=== PATIENT | female | born 1960 ===

== ENCOUNTER → 2025-05-28 | Outpatient (CLI) | payer OTHER ==
[2025-05-28 15:51] LABS: Candida Group, PCR NOT DETECTED (NOT DETECT)
[2025-05-28 19:32] LABS: Bacterial Vaginosis PCR Positive (NEGATIVE); Candida glabrata-krusei, PCR DETECTED (NOT DETECT)
== END ==
LOC: LAB SHORT 11:27 → LAB 11:27
DX: N89.8 Other specified noninflammatory disorders of vagina (principal)
CPT/HCPCS: 81515